=== PATIENT | female | born 1965 | race American Indian/Alaskan Native ===

== ENCOUNTER 2019-08-22 01:48 | Emergency (ER) | payer OTHER ==
--- NOTE | 2019-08-22 02:09 | ED Physician Documentation ---
PD HPI ABD PAIN - Stated complaint Stated Complaint: ABD PX - Chief complaint Chief Complaint: Abd Pain - History obtained from History obtained from: Patient - History of Present Illness Timing - onset: How many days ago (3-4) Timing - details: Abrupt onset, Intermittant Pain level max: 9 Pain level now: 8 Quality: Pain Location: RUQ, Epigastric Radiation: Right flank Improved by: Other (nothing) Worsened by: Other (no exacerbating factors) Similar symptoms before: Diagnosis (diagnosed with biliary colic few days ago in an ED in [place]; documents patient has with her indicate the gallstone was not seen on US, but CT revealed 2.9 cm gallstone impacted in GB neck. she was discharged with rx for percocet and pain had resolved with morphine while in ED but recurred tonight and no improvement with prescribed percocet) Review of Systems Constitutional: reports: Reviewed and negative Cardiac: reports: Reviewed and negative Respiratory: reports: Reviewed and negative GI: reports: Abdominal Pain, Nausea, Vomiting : denies: Dysuria, Frequency PD PAST MEDICAL HISTORY - Past Medical History Past Medical History: No - Present Medications Home Medications: Ambulatory Orders Medication Instructions Recorded Confirmed Hydrocodone/Acetaminophen 1 - 2 each PO Q6H PRN #20 tablet 08/22/19 [Hydrocodon-Acetaminophen 5-325] Naproxen 500 mg PO BID PRN #20 tablet 08/22/19 - Allergies Allergies/Adverse Reactions: Allergies Allergy/AdvReac Type Severity Reaction Status Date / Time No Known Drug Allergies Allergy Verified 08/22/19 01:58 - Social History Does the pt smoke?: No Smoking Status: Never smoker PD ED PE NORMAL - Vitals Vital signs reviewed: Yes - General General: Alert and oriented X 3, Well developed/nourished, Other (obvious painful distress) - HEENT HEENT: Moist mucous membranes - Cardiac Cardiac: RRR, No murmur - Respiratory Respiratory: No respiratory distress, Clear bilaterally - Abdomen Abdomen: Soft, Non tender, Non distended - Back Back: No CVA TTP - Derm Derm: Normal color, Warm and dry Results - Vitals Vitals: Oxygen O2 Source Room air Oxygen Flow Rate 2 - Labs Labs: Laboratory Tests 08/22/19 08/22/19 08/22/19 02:05 02:30 04:58 WBC 11.8 H RBC 4.60 Hgb 14.1 Hct 40.3 MCV 87.6 MCH 30.7 MCHC 35.0 RDW 11.8 L Plt Count 293 MPV 9.1 Neut # (Auto) 10.1 H Lymph # (Auto) 1.1 L Humphreys # (Auto) 0.5 Eos # (Auto) 0.1 Baso # (Auto) 0.1 Absolute Nucleated RBC 0.00 Nucleated RBC % 0.0 Sodium 136 Potassium 3.3 L Chloride 100 L Carbon Dioxide 22 Anion Gap 14.0 H BUN 17 Creatinine 0.9 Estimated GFR (MDRD) 65 L Glucose 138 H Calcium 9.4 Total Bilirubin 0.9 AST 21 ALT 23 Alkaline Phosphatase 62 Total Protein 8.1 Albumin 4.4 Globulin 3.7 Albumin/Globulin Ratio 1.2 Lipase 20 L Urine Color YELLOW Urine Clarity CLEAR Urine pH 7.0 Ur Specific [place] 1.010 Urine Protein NEGATIVE Urine Glucose (UA) NEGATIVE Urine Ketones 40 H Urine Occult Blood TRACE-INTA Urine Nitrite NEGATIVE Urine Bilirubin NEGATIVE Urine Urobilinogen 0.2 (NORMAL) Ur Leukocyte Esterase NEGATIVE Ur Microscopic Review NOT INDICATED Urine Culture Comments NOT INDICATED - Rads (name of study) RUQ US Radiology: Prelim report reviewed, See rad report PD MEDICAL DECISION MAKING - ED course Complexity details: reviewed results, re-evaluated patient, considered differential, d/w patient, d/w family ( at bedside) ED course: blood tests are reassuring and pain controlled well with dilaudid (morphine provided inadequate improvement). I offered to admit her to surgical service but she declines; she wants to try to get back home to [place] before considering surgery Departure - Departure Disposition: 01 Home, Self Care Clinical Impression: Biliary colic Condition: Good Instructions: ED Gallstone W Biliary Colic Follow-Up: Oleg Hennessy MD [Provider Admit Priv/Credential] - Prescriptions: Hydrocodone/Acetaminophen [Hydrocodon-Acetaminophen 5-325] 1 - 2 each PO Q6H PRN #20 tablet PRN Reason: pain Naproxen 500 mg PO BID PRN #20 tablet PRN Reason: Pain Discharge Date/Time: 08/22/19 06:40
[2019-08-22] MEDS ORDERED: SODIUM CHLORIDE 0.9% 1,000 ML IV STA (02:10)
[2019-08-22] MEDS ORDERED: MORPHINE 2 MG/ML CARPUJECT IVP STA (02:15)
[2019-08-22] MEDS ORDERED: ONDANSETRON 4 MG/2 ML VIAL IVP STA (02:16)
[2019-08-22] MEDS ORDERED: ONDANSETRON 4 MG/2 ML VIAL ONE (02:16)
[2019-08-22] MEDS ORDERED: MORPHINE 2 MG/ML CARPUJECT ONE (02:16)
[2019-08-22 02:18] LABS: BASOPHILS # (AUTO) 0.1 10^3/uL (0.0-0.1); BASOPHILS % (AUTO) 0.5 %; EOSINOPHILS # (AUTO) 0.1 10^3/uL (0.0-0.7); EOSINOPHILS % (AUTO) 0.8 %; HGB - HEMOGLOBIN 14.1 g/dL (12.0-16.0); LYMPHOCYTES # (AUTO) 1.1 10^3/uL (1.5-3.5); MEAN CORPUSCULAR HEMOGLOBIN 30.7 pg (27.0-31.0); MEAN CORPUSCULAR VOLUME 87.6 fL (81.0-99.0); MEAN PLATELET VOLUME 9.1 fL (7.9-10.8); MONOCYTES # (AUTO) 0.5 10^3/uL (0.0-1.0); MONOCYTES % (AUTO) 4.1 %; NEUTROPHILS # (AUTO) 10.1 10^3/uL (1.5-6.6); NEUTROPHILS % (AUTO) 85.3 %; PLT - PLATELET COUNT 293 10^3/uL (130-450); RED CELL DISTRIBUTION WIDTH 11.8 % (12.0-15.0); WHITE BLOOD COUNT 11.8 x10^3/uL (4.8-10.8)
[2019-08-22] MEDS ORDERED: HYDROmorphone 1 MG/ML CARPUJECT IVP STA ×2 (02:40→05:58)
[2019-08-22 02:49] LABS: ALBUMIN 4.4 g/dL (3.2-5.5); ALBUMIN/GLOBULIN RATIO 1.2 (1.0-2.2); BILIRUBIN,TOTAL 0.9 mg/dL (0.2-1.0); CALCIUM 9.4 mg/dL (8.5-10.3); CREATININE 0.9 mg/dL (0.4-1.0); TOTAL PROTEIN 8.1 g/dL (6.7-8.2)
[2019-08-22 05:02] LABS: BILIRUBIN,URINE NEGATIVE (NEGATIVE); GLUCOSE, URINE (UA) NEGATIVE (NEGATIVE); KETONES,URINE (UA) 40 mg/dL (NEGATIVE); LEUKOCYTE ESTERASE, URINE NEGATIVE (NEGATIVE); NITRITE,URINE NEGATIVE (NEGATIVE); OCCULT BLOOD,URINE TRACE-INTA (NEGATIVE); PROTEIN,URINE NEGATIVE (NEGATIVE); UROBILINOGEN,URINE 0.2 (NORMAL) E.U./dL (NORMAL)
--- NOTE | 2019-08-22 05:02 | Ultrasound Report ---
Reason: RUQ pain Procedure Date: 08/22/2019 Accession Number: [id number] / [id number] Procedure: US - Abdomen Limited CPT Code: Final Report FULL RESULT: EXAM: ABDOMEN ULTRASOUND LIMITED, RUQ EXAM DATE: 08/22/2019 04:30 AM CLINICAL HISTORY: Right upper quadrant pain. COMPARISON: None. TECHNIQUE: Real-time scanning was performed with static images obtained. FINDINGS: Liver: Moderate to severe increased echogenicity. Lobular cyst within the right hepatic lobe noted measuring 2.9 x 3.7 x 2.8 cm. No suspicious focal lesion. Liver measures 14.9 cm in length. Portal Vein: Patent with hepatopetal flow. Gallbladder: Mildly distended. Mild wall thickening. There is slight amount of pericholecystic fluid. Sludge and small stones are noted. Biliary System: CBD measures 2.4 mm. No intrahepatic or extrahepatic ductal dilatation. Pancreas: Obscured by overlying structures. Right Kidney: Visualized portions of the right kidney are without significant abnormality. Right kidney measures 11.3 cm in length. Other: None. IMPRESSION: 1. Mildly distended gallbladder with sludge and tiny stones. There is mild wall thickening and slight amount of pericholecystic fluid. Findings raise the possibility of acute cholecystitis. 2. There is no biliary ductal dilation. 3. Moderate hepatic steatosis. RADIA
[2019-08-22 05:05] LABS: CLARITY,URINE CLEAR (CLEAR)
[2019-08-22 06:12] VITALS: BP 120/74
== END 2019-08-22 06:40 | disposition home or self-care (01) ==
LOC: ED 01:48
DX: K80.70 Calculus of gallbladder and bile duct without cholecystitis without obstruction (principal)
CPT/HCPCS: 36415; 76705; 80053; 81003; 83690; 85025; 96374; 96375; 96376; 99284; J1170; 81001; 87086